=== PATIENT | male | born 1965 | race Two or more races ===

== ENCOUNTER 2024-07-11 12:54 | Emergency (ER) | payer BC ==
[~2024-07-11] VITALS: Ht 172.7 cm; Wt 91.6 kg
[2024-07-11 13:29] VITALS: BP 142/75; PULSE 80; RESP 18; TEMP 98; O2SAT 97
[2024-07-11] MEDS: LIDOCAINE 1% HCL (LOCAL ANESTH.) INJ 20ML MDV IJ ONE (13:57)
[2024-07-11] MEDS ORDERED: CEPH500C PO (13:59)
[2024-07-11] MEDS: TETANUS-DIPTH-ACEL PERTUSSIS 0.5ML SYR Tdap IM ONE (14:22)
== END 2024-07-11 14:30 | disposition home or self-care (01) ==
LOC: ER 12:54
DX: S61.411A Laceration without foreign body of right hand, initial encounter (principal); W26.8XXA Contact with other sharp object(s), not elsewhere classified, initial encounter; Y93.89 Activity, other specified; Y92.89 Other specified places as the place of occurrence of the external cause; Y99.8 Other external cause status
CPT/HCPCS: 12002; 90471; 90715; 99283; J2003